=== PATIENT | female | born 1950 | race Hispanic/Latino ===

== ENCOUNTER 2017-01-29 05:57 | Inpatient (IN) | payer MEDICARE, BC ==
[2017-01-21 11:59] VITALS: BMI 36.6
[2017-01-29] MEDS ORDERED: Absorbable Gelatin Sponge Size 100 ONE (07:02)
[2017-01-29] MEDS ORDERED: Bupivacaine HCl 0.25% PF (30 ml) Inj ONE (07:02)
[2017-01-29] MEDS ORDERED: Thrombin Topical 5,000 IU Spray Kit ONE (07:03)
[2017-01-29] MEDS ORDERED: Midazolam 2 MG/2 ML VIAL ONE (07:09)
[2017-01-29] MEDS ORDERED: Propofol 10 mg/ml Inj (20 ML) ONE ×2 (07:09→10:18)
[2017-01-29] MEDS ORDERED: ePHEDrine 50 mg/ml Inj ONE ×2 (07:09→09:25)
[2017-01-29] MEDS ORDERED: Lactated Ringer's 1,000 ML IV ONE ×3 (07:09→10:00)
[2017-01-29] MEDS ORDERED: Rocuronium 10 mg/ml (5 ml) ONE (07:10)
[2017-01-29] MEDS ORDERED: Succinylcholine 200 mg/10 ml Inj IV ONE (07:10)
--- NOTE | 2017-01-29 07:44 | CP.PCM.CON ---
History of Present Illness - History of Present Illness History of Present Illness: 66 yo female with ongoing longstanding hx LBP radiating to bilateral posterior thighs, worsening paresthesias to bilateral feet,bilateral foot drops,ambulates with braces,multiple falls,dx with lumbar spinal stenosis and spondylolishthesis years ago,unable to have surgical intervention secondary to other medical problems,no relief with therapy and medication,increasing difficulty performing ADL's,here today for proposed Decompressive Lumbar Laminectomy and Fusion with Dr. Woodson,denies Bowel or bladder incontinance. Review of Systems - Review of Systems Systems not reviewed;Unavailable: Acuity of Condition - EENT Eyes: Requires Corrective Lenses - Cardiovascular Additional comments: Hx Htn,Hx pericardial effusion s/p pericardial window years agodenies CP,SOB, palpitations,arrthymia or AL - Musculoskeletal Musculoskeletal: Muscle Weakness, Radiating Pain into Limb, Tingling - Neurological Neurological: As Per HPI - Psychiatric Additional comments: Hx Depression ,denies suicidal/homicidal ideation - Endocrine Additional Comments: Hx Hypothyroidism - Hematologic/Lymphatic Additional comments: Hx Lymphoma with Adjuvant Rx 17 years ago and bone marrow transplant 4 years ago Past Patient History - Infectious Disease Hx of Infectious Diseases: None - Tetanus Immunizations Tetanus Immunization: Unknown - Past Medical History & Family History Past Medical History?: Yes - Past Social History Smoking Status: Never Smoked Chewing Tobacco Use: No Cigar Use: No Occupation: Retired Teacher Alcohol: None Drugs: Denies Home Situation {Lives}: With Family Domestic Violence: Negative - CARDIAC Hx Cardiac Disorders: Yes Hx Hypercholesterolemia: Yes Hx Hypertension: Yes - PULMONARY Hx Respiratory Disorders: No - NEUROLOGICAL Hx Neurological Disorder: No - HEENT Hx HEENT Problems: No - RENAL Hx Chronic Kidney Disease: No - ENDOCRINE/METABOLIC Hx Endocrine Disorders: No - HEMATOLOGICAL/ONCOLOGICAL Hx Blood Disorders: Yes Hx Anemia: Yes Hx Blood Transfusions: Yes (2002) Hx Blood Transfusion Reaction: No Hx Chemotherapy: Yes - INTEGUMENTARY Hx Dermatological Problems: No - MUSCULOSKELETAL/RHEUMATOLOGICAL Hx Musculoskeletal Disorders: Yes Hx Arthritis: Yes Hx Back Pain: Yes Hx Falls: Yes - GASTROINTESTINAL Hx Gastrointestinal Disorders: No - GENITOURINARY/GYNECOLOGICAL Hx Genitourinary Disorders: No - PSYCHIATRIC Hx Psychophysiologic Disorder: Yes Hx Depression: Yes - SURGICAL HISTORY Hx Surgeries: Yes Other/Comment: APPENDECTOMY-40 YEARS AGO;RIGHT TOTAL KNEE REPLACEMENT-1 YEAR AGO ;BONE MARROW TRANSPLANT 2012 - ANESTHESIA Hx Anesthesia: Yes Hx Anesthesia Reactions: No Hx Malignant Hyperthermia: No Has any member of the family had a problem w/ anesthesia?: No Meds Allergies/Adverse Reactions: Allergies Allergy/AdvReac Type Severity Reaction Status Date / Time No Known Allergies Allergy Verified 01/29/17 06:29 Physical Exam - Constitutional Appears: Well, Non-toxic, No Acute Distress - Head Exam Head Exam: ATRAUMATIC, NORMAL INSPECTION, NORMOCEPHALIC - Eye Exam Eye Exam: EOMI, Normal appearance, PERRL Pupil Exam: NORMAL ACCOMODATION - ENT Exam ENT Exam: Mucous Membranes Moist - Neck Exam Neck exam: Positive for: Normal Inspection - Respiratory Exam Respiratory Exam: Clear to Auscultation Bilateral - Cardiovascular Exam Cardiovascular Exam: REGULAR RHYTHM - GI/Abdominal Exam GI & Abdominal Exam: Normal Bowel Sounds, Soft - Rectal Exam Rectal Exam: Deferred - Extremities Exam Extremities exam: Positive for: pedal pulses present - Back Exam Back exam: paraspinal tenderness, vertebral tenderness - Neurological Exam Neurological exam: Alert, Oriented x3 Additional comments: DIAZ x 4 antigravity with BLE weakness 4/5,depressed DTR's ,bilateral SLR 30 degree's,+ bilateral foot drops,dorsiflexion 1/5,plantar flexion 3+ to 4/5, decreased sensation bilateral pedis and L4-5 dermatome - Psychiatric Exam Psychiatric exam: Normal Affect, Normal Mood - Skin Skin Exam: Dry, Intact Results - Vital Signs Recent Vital Signs: Last Vital Signs Temp 98.4 F 01/29/17 06:44 Pulse 72 01/29/17 06:44 Resp 20 01/29/17 06:44 BP 125/65 01/29/17 06:44 Pulse Ox 95 01/29/17 06:44 - Labs Result Diagrams: 01/31/17 06:00 01/30/17 04:50 Labs: Laboratory Results - last 24 hr 01/29/17 05:45 BBK History Checked No verified bt Assessment & Plan - Assessment and Plan (Free Text) Assessment: 66 yo female with Lumbar Spinal Stenosis, Spondylolishthesis with radiculapathy BLE and Foot Drops Plan: here for proposed Decompressive Lumbar laminectomy and Instrumented Fusion, risks and benefits of surgery d/w pt and informed that symptoms may or may not improve post surgery,,expressed understanding and wishes to proceed
[2017-01-29] MEDS ORDERED: HEMOSTATIC MATRIX 10 ML DIS.NEEDLE TOP ONE (08:15)
[2017-01-29] MEDS ORDERED: Neostigmine Methylsulfate 3mg/3ml Syringe IV ONE (09:15)
[2017-01-29] MEDS ORDERED: Neostigmine Methylsulfate 2 MG/2 ML ML IV ONE (09:15)
[2017-01-29] MEDS ORDERED: Thrombin Topical 5,000 IU Spray Kit TOP ONE (09:39)
[2017-01-29] MEDS ORDERED: Absorbable Gelatin Sponge Size 100 TP ONE (09:40)
[2017-01-29] MEDS ORDERED: Bupivacaine HCl 0.25% PF (30 ml) Inj IJ ONE (10:08)
[2017-01-29] MEDS ORDERED: Naloxone 0.4 mg/ml Inj (Adult) IVP PRN (10:34)
[2017-01-29] MEDS: HYDROmorphone 0.5 mg/0.5 ml ISec IVP PRN ×4 (11:10→12:05)
--- NOTE | 2017-01-29 11:43 | RAD ---
PROCEDURE: Intraoperative Fluoroscopy. HISTORY: PLIF FINDINGS: Fluoroscopic assistance was provided. 53.9 seconds fluoroscopy time utilized during this procedure. Radiation dose = 47.54 mGy.
[2017-01-29] MEDS ORDERED: HYDROmorphone 0.5 mg/0.5 ml ISec ONE (11:48)
[2017-01-29] MEDS ORDERED: HYDROmorphone 0.5 mg/0.5 ml ISec IVP ONE (12:22)
[2017-01-29 15:01] LABS: HEMATOCRIT 35.4 % (34.0-47.0); MEAN CELL VOLUME 96.5 fl (81.0-99.0); MEAN CORPUSCULAR HEMOGLOBIN 30.8 pg (27.0-31.0); MEAN CORPUSCULAR HGB CONC 31.9 g/dL (33.0-37.0); RED CELL DISTRIBUTION WIDTH 14.2 % (11.5-14.5); WHITE BLOOD COUNT 11.3 K/uL (4.8-10.8)
[2017-01-29 15:17] LABS: GFR AFRICAN-AMERICAN > 60
[2017-01-29] MEDS: ceFAZolin 1 GM in Sodium Chloride 0.9% 100 ML IVPB SCH (17:20)
[2017-01-29] MEDS ORDERED: Dextrose 5%/0.45% NS 1,000 ML IV SCH (23:45)
--- NOTE | 2017-01-30 01:43 | OP ---
PREOPERATIVE DIAGNOSES: Spondylolisthesis at L4-L5 with spinal instability and spinal stenosis. POSTOPERATIVE DIAGNOSES: Spondylolisthesis at L4-L5 with spinal instability and spinal stenosis. PROCEDURE: L4-L5 lumbar laminectomy, L4-L5 pedicle screw fixation using Amendia system and L4-L5 posterolateral fusion. SURGEON: Dr. Woodson. DIRECTOR FEDERAL: DESIRAE Sumner DESCRIPTION OF PROCEDURE: The patient was brought to the operating room, administered with general endotracheal anesthesia, placed in a prone position on a Rodney table. Care was taken to protect all the pressure points. Back of the lumbar area thoroughly prepped and draped in sterile manner after marking for a skin incision for a lumbar laminectomy and fusion. After prepping and draping the area, skin has been incised. Bleeding skins had been controlled with bipolar hanger off. After using a Bovie hanger off, paraspinal muscles had been detached, attachments of spinous process, lamina of L4-L5 bilaterally. The deep retractors have been applied. Fluoroscopy had been used in order to confirm this level. At this point, by using traditional landmarks, point of entry had been noted for L4-L5 pedicles. Initially, a K-wire, later a drill had been used in order to enter the pedicles. Bones were found to be soft. After that, polyaxial titanium screws of Amendia system had been placed in the pedicles of L4 and L5 under fluoroscopy-guided control. Titanium rods had been placed, cap nuts had been used in order to secure them. After that, under microscopic examination, by using a Leksell rongeur, the spinous process of L4 and L5 had been removed. By using a high speed drill the lamina had been drilled to actual thickness. By using a fine Kerrison punch, lamina, medial part of the facets and ligamentum flavum had been removed decompressing this area. After that, lateral aspect of facet joint had been decorticated, demineralized bone placed in the area achieving a posterolateral fusion. Hemostasis best achieved. Rodney drain placed on the wound and brought out through a separate stab neck skin incision. Muscles and fascia closed with 1 Vicryl, subcutaneous tissue with 3 Vicryl and skin had been closed with intradermal 3 Vicryl stitches. Leland Woodson MD
[2017-01-30] MEDS: ceFAZolin 1 GM in Sodium Chloride 0.9% 100 ML IVPB SCH ×3 (01:44→17:26)
[2017-01-30 06:01] LABS: HEMATOCRIT 33.8 % (34.0-47.0); MEAN CELL VOLUME 96.9 fl (81.0-99.0); MEAN CORPUSCULAR HEMOGLOBIN 31.5 pg (27.0-31.0); MEAN CORPUSCULAR HGB CONC 32.5 g/dL (33.0-37.0); RED CELL DISTRIBUTION WIDTH 14.5 % (11.5-14.5); WHITE BLOOD COUNT 11.5 K/uL (4.8-10.8)
[2017-01-30] MEDS: Levothyroxine 50 MCG TAB PO SCH (06:03)
[2017-01-30 06:34] LABS: BLOOD UREA NITROGEN 11 mg/dl (7-17); CALCIUM 8.6 mg/dL (8.4-10.2); CARBON DIOXIDE 29 mmol/L (22-30); CHLORIDE 97 mmol/L (98-107); GFR AFRICAN-AMERICAN > 60; GLUCOSE,RANDOM 147 mg/dL (65-105); POTASSIUM 4.3 MMOL/L (3.6-5.0); SODIUM 136 mmol/l (132-148)
[2017-01-30] MEDS: Venlafaxine 150 mg ER Cap PO SCH (08:56)
[2017-01-30] MEDS ORDERED: Oxycodone/Acetaminophen 5/325 mg Tab PO PRN (09:48)
[2017-01-30] MEDS ORDERED: HYDROmorphone 0.5 mg/0.5 ml ISec IVP PRN (09:49)
[2017-01-30] MEDS: oxyCODONE 5 mg Immediate Release Tab PO PRN (13:22)
--- NOTE | 2017-01-30 16:48 | CP.PCM.PN ---
Subjective - Date & Time of Evaluation Date of Evaluation: 01/30/17 Time of Evaluation: 09:00 - Subjective Subjective: pt c/o incisional pain alleviated with pain meds,to get OOB and eval by PT today ,shane PO,mild indigestion,voiding without c/o,+ flatus,no events last pm noted Objective - Vital Signs/Intake and Output Vital Signs (last 24 hours): Temp Pulse Resp BP Pulse Ox 99.7 F H 96 H 20 123/78 95 01/30/17 16:04 01/30/17 16:04 01/30/17 16:04 01/30/17 16:04 01/30/17 16:04 Intake and Output: 01/30/17 01/30/17 06:59 18:59 Intake Total 1050 Output Total 980 Balance 70 - Medications Medications: Current Medications Acetaminophen (Tylenol 325mg Tab) 650 mg PO Q6 PRN PRN Reason: temp . 100.4 Atorvastatin Calcium (Lipitor) 20 mg PO DAILY [facility] Last Admin: 01/30/17 08:57 Dose: 20 mg Carvedilol (Coreg) 3.125 mg PO BID [facility] Last Admin: 01/30/17 08:55 Dose: 3.125 mg Cholecalciferol (Vitamin D) 2,000 iu PO DAILY [facility] Last Admin: 01/30/17 08:58 Dose: 2,000 iu Cyclobenzaprine HCl (Flexeril) 10 mg PO TID PRN PRN Reason: Muscle spasm Enoxaparin Sodium (Lovenox) 40 mg SC DAILY [facility] PRN Reason: Protocol Fentanyl (Duragesic) 1 patch TD Q3D [facility] PRN Reason: Protocol Hydromorphone HCl (Dilaudid) 1 mg IVP Q4 PRN PRN Reason: Pain, severe (8-10) Cefazolin Sodium 1 gm/ Sodium (Chloride) 100 mls @ 100 mls/hr IVPB Q8 [facility] Last Admin: 01/30/17 09:11 Dose: 100 mls/hr Dextrose/Sodium Chloride (Dextrose 5%/0.45% Ns 1000 Ml) 1,000 mls @ 80 mls/hr IV .[id number] [facility] Stop: 01/30/17 23:37 Last Admin: 01/30/17 00:40 Dose: 80 mls/hr Levothyroxine Sodium (Synthroid) 50 mcg PO 0630 [facility] Last Admin: 01/30/17 06:03 Dose: 50 mcg Naloxone HCl (Narcan) 0.1 mg IVP Q2M PRN PRN Reason: Shortness of Breath Ondansetron HCl (Zofran Inj) 4 mg IVP Q8 PRN PRN Reason: Nausea/Vomiting Oxycodone HCl (Oxycodone Immediate Release Tab) 15 mg PO Q6 PRN PRN Reason: Pain, moderate (4-7) Last Admin: 01/30/17 13:22 Dose: 15 mg Pregabalin (Lyrica) 100 mg PO TID [facility] Last Admin: 01/30/17 13:23 Dose: 100 mg Venlafaxine HCl (Effexor Xr) 150 mg PO DAILY [facility] Last Admin: 01/30/17 08:56 Dose: 150 mg - Labs Labs: 01/30/17 04:50 01/30/17 04:50 - Constitutional Appears: Well, Non-toxic, No Acute Distress - Head Exam Head Exam: ATRAUMATIC, NORMAL INSPECTION, NORMOCEPHALIC - Eye Exam Eye Exam: EOMI, Normal appearance, PERRL - ENT Exam ENT Exam: Mucous Membranes Moist - Neck Exam Neck Exam: Normal Inspection - Respiratory Exam Respiratory Exam: Clear to Ausculation Bilateral - Cardiovascular Exam Cardiovascular Exam: REGULAR RHYTHM, +S1, +S2 - GI/Abdominal Exam GI & Abdominal Exam: Soft, Normal Bowel Sounds - Extremities Exam Extremities Exam: Normal Capillary Refill, Normal Inspection Additional comments: calves soft/NT - Back Exam Additional comments: incision C/D/I,ELE with serosanguinos drainage,+ incisional tenderness,no fluctuance - Neurological Exam Neurological Exam: Alert, Oriented x3 Additional comments: DIAZ x 4 antigravity with good strength,limited secondary to pain,decreased sensation BLE,+ bilateral unchanged foot drops,depressed DTR's - Psychiatric Exam Psychiatric exam: Normal Affect, Normal Mood - Skin Skin Exam: Dry, Intact Assessment and Plan - Assessment and Plan (Free Text) Assessment: 66 yo female POD#1 Decompressive Lumbar Laminectomy and Instrumented Fusion L4- 5 secondary to Spinal Stenosis and Spondylolishthesis ,Neurologically Stable Plan: [employer] d/c,home pain meds restarted and getting Dilaudid for breakthrough pain and muscle relaxer,cont OOB,f/u PT eval,possible rehab candidate,cont to monitor, keep drain in,all d/w Dr. Woodson
--- NOTE | 2017-01-30 16:56 | US ---
PROCEDURE: Bilateral lower extremity venous duplex Doppler. HISTORY: p/op [place] /fusion,hx CA,immobile,r/o DVT COMPARISON: Not available TECHNIQUE: Bilateral common femoral, superficial femoral, popliteal and posterior tibial veins were evaluated. Flow was assessed with color Doppler, compressibility, assessment of phasic flow and augmentation response. FINDINGS: COMMON FEMORAL VEIN: Right CFV: Unremarkable. Left CFV: Unremarkable. SUPERFICIAL FEMORAL VEIN: Right SFV: Unremarkable. Left SFV: Unremarkable. POPLITEAL VEIN: Right Popliteal: Unremarkable. Left Popliteal: Unremarkable. POSTERIOR TIBIAL VEIN: Right PTV: Unremarkable. Left PTV: Unremarkable. OTHER FINDINGS: None. IMPRESSION: No evidence of deep venous thrombosis in the right or left lower extremity. .
[2017-01-30] MEDS: Enoxaparin 40 mg Syringe SC SCH (17:29)
[2017-01-31] MEDS: ceFAZolin 1 GM in Sodium Chloride 0.9% 100 ML IVPB SCH ×3 (00:35→16:26)
[2017-01-31] MEDS: Levothyroxine 50 MCG TAB PO SCH (05:39)
[2017-01-31 07:28] LABS: HEMATOCRIT 31.8 % (34.0-47.0); MEAN CELL VOLUME 96.5 fl (81.0-99.0); MEAN CORPUSCULAR HEMOGLOBIN 31.1 pg (27.0-31.0); MEAN CORPUSCULAR HGB CONC 32.2 g/dL (33.0-37.0); RED CELL DISTRIBUTION WIDTH 14.5 % (11.5-14.5)
[2017-01-31] MEDS: Venlafaxine 150 mg ER Cap PO SCH (08:44)
[2017-01-31] MEDS: Enoxaparin 40 mg Syringe SC SCH (08:45)
--- NOTE | 2017-01-31 10:35 | CP.PCM.PN ---
Subjective - Date & Time of Evaluation Date of Evaluation: 01/31/17 Time of Evaluation: 10:30 - Subjective Subjective: Patient is doing well. She did well with her PT yesterday. US showed no DVT Objective - Vital Signs/Intake and Output Vital Signs (last 24 hours): Temp Pulse Resp BP Pulse Ox 98.7 F 80 18 94/55 L 96 01/31/17 07:56 01/31/17 09:00 01/31/17 07:56 01/31/17 08:44 01/31/17 07:56 - Medications Medications: Current Medications Acetaminophen (Tylenol 325mg Tab) 650 mg PO Q6 PRN PRN Reason: temp . 100.4 Atorvastatin Calcium (Lipitor) 20 mg PO DAILY [facility] Last Admin: 01/31/17 08:44 Dose: 20 mg Carvedilol (Coreg) 3.125 mg PO BID [facility] Last Admin: 01/31/17 08:44 Dose: Not Given Cholecalciferol (Vitamin D) 2,000 iu PO DAILY [facility] Last Admin: 01/31/17 08:45 Dose: 2,000 iu Cyclobenzaprine HCl (Flexeril) 10 mg PO TID PRN PRN Reason: Muscle spasm Enoxaparin Sodium (Lovenox) 40 mg SC DAILY [facility] PRN Reason: Protocol Last Admin: 01/31/17 08:45 Dose: 40 mg Fentanyl (Duragesic) 1 patch TD Q3D [facility] PRN Reason: Protocol Hydromorphone HCl (Dilaudid) 1 mg IVP Q4 PRN PRN Reason: Pain, severe (8-10) Last Admin: 01/31/17 08:51 Dose: 1 mg Cefazolin Sodium 1 gm/ Sodium (Chloride) 100 mls @ 100 mls/hr IVPB Q8 [facility] Last Admin: 01/31/17 08:43 Dose: 100 mls/hr Levothyroxine Sodium (Synthroid) 50 mcg PO 0630 [facility] Last Admin: 01/31/17 05:39 Dose: 50 mcg Naloxone HCl (Narcan) 0.1 mg IVP Q2M PRN PRN Reason: Shortness of Breath Ondansetron HCl (Zofran Inj) 4 mg IVP Q8 PRN PRN Reason: Nausea/Vomiting Oxycodone HCl (Oxycodone Immediate Release Tab) 15 mg PO Q6 PRN PRN Reason: Pain, moderate (4-7) Last Admin: 01/30/17 13:22 Dose: 15 mg Pregabalin (Lyrica) 100 mg PO TID [facility] Last Admin: 01/31/17 08:47 Dose: 100 mg Venlafaxine HCl (Effexor Xr) 150 mg PO DAILY [facility] Last Admin: 01/31/17 08:44 Dose: 150 mg - Labs Labs: 01/31/17 06:00 01/30/17 04:50 - Head Exam Head Exam: NORMAL INSPECTION - Eye Exam Eye Exam: Normal appearance - ENT Exam ENT Exam: Mucous Membranes Moist - Respiratory Exam Respiratory Exam: Clear to Ausculation Bilateral - Cardiovascular Exam Cardiovascular Exam: REGULAR RHYTHM - GI/Abdominal Exam GI & Abdominal Exam: Normal Bowel Sounds Assessment and Plan (1) Hypertension Status: Acute (2) Hypothyroidism Status: Acute (3) Lumbar radiculopathy, chronic Status: Acute (4) Lumbar spondylosis Status: Acute (5) Neurologic gait dysfunction Status: Acute (6) Obesity (BMI 35.0-39.9 without comorbidity) Status: Acute - Assessment and Plan (Free Text) Plan: cont meds cont PT for subacute rehab
[2017-01-31] MEDS: oxyCODONE 5 mg Immediate Release Tab PO PRN ×2 (10:36→18:08)
--- NOTE | 2017-01-31 10:36 | CP.PCM.PN ---
Subjective - Date & Time of Evaluation Date of Evaluation: 01/30/17 Time of Evaluation: 10:00 - Subjective Subjective: patient remains well has minimal back pain. comp[lains of some discomfort in the upper thigh areas. Objective - Vital Signs/Intake and Output Vital Signs (last 24 hours): Temp Pulse Resp BP Pulse Ox 98.7 F 80 18 94/55 L 96 01/31/17 07:56 01/31/17 09:00 01/31/17 07:56 01/31/17 08:44 01/31/17 07:56 - Medications Medications: Current Medications Acetaminophen (Tylenol 325mg Tab) 650 mg PO Q6 PRN PRN Reason: temp . 100.4 Atorvastatin Calcium (Lipitor) 20 mg PO DAILY [facility] Last Admin: 01/31/17 08:44 Dose: 20 mg Carvedilol (Coreg) 3.125 mg PO BID [facility] Last Admin: 01/31/17 08:44 Dose: Not Given Cholecalciferol (Vitamin D) 2,000 iu PO DAILY [facility] Last Admin: 01/31/17 08:45 Dose: 2,000 iu Cyclobenzaprine HCl (Flexeril) 10 mg PO TID PRN PRN Reason: Muscle spasm Enoxaparin Sodium (Lovenox) 40 mg SC DAILY [facility] PRN Reason: Protocol Last Admin: 01/31/17 08:45 Dose: 40 mg Fentanyl (Duragesic) 1 patch TD Q3D [facility] PRN Reason: Protocol Hydromorphone HCl (Dilaudid) 1 mg IVP Q4 PRN PRN Reason: Pain, severe (8-10) Last Admin: 01/31/17 08:51 Dose: 1 mg Cefazolin Sodium 1 gm/ Sodium (Chloride) 100 mls @ 100 mls/hr IVPB Q8 [facility] Last Admin: 01/31/17 08:43 Dose: 100 mls/hr Levothyroxine Sodium (Synthroid) 50 mcg PO 0630 [facility] Last Admin: 01/31/17 05:39 Dose: 50 mcg Naloxone HCl (Narcan) 0.1 mg IVP Q2M PRN PRN Reason: Shortness of Breath Ondansetron HCl (Zofran Inj) 4 mg IVP Q8 PRN PRN Reason: Nausea/Vomiting Oxycodone HCl (Oxycodone Immediate Release Tab) 15 mg PO Q6 PRN PRN Reason: Pain, moderate (4-7) Last Admin: 01/30/17 13:22 Dose: 15 mg Pregabalin (Lyrica) 100 mg PO TID [facility] Last Admin: 01/31/17 08:47 Dose: 100 mg Venlafaxine HCl (Effexor Xr) 150 mg PO DAILY [facility] Last Admin: 01/31/17 08:44 Dose: 150 mg - Labs Labs: 01/31/17 06:00 01/30/17 04:50 - Head Exam Head Exam: NORMAL INSPECTION - Eye Exam Eye Exam: Normal appearance - ENT Exam ENT Exam: Mucous Membranes Moist - Cardiovascular Exam Cardiovascular Exam: REGULAR RHYTHM - GI/Abdominal Exam GI & Abdominal Exam: Normal Bowel Sounds - Neurological Exam Neurological Exam: Awake, Oriented x3 - Psychiatric Exam Psychiatric exam: Normal Mood Assessment and Plan (1) Lumbar spondylosis Status: Acute (2) Hypertension Status: Acute (3) Lumbar radiculopathy, chronic Status: Acute (4) Neurologic gait dysfunction Status: Acute (5) Obesity (BMI 35.0-39.9 without comorbidity) Status: Acute - Assessment and Plan (Free Text) Plan: cont meds cont tx Cont PT cont pain meds.
--- NOTE | 2017-01-31 10:37 | CP.PCM.HP ---
History of Present Illness - History of Present Illness History of Present Illness: This is a 66 y/o female admitted for intractable back pain. She has problems with gait and ambulation and was diagnosed to have lumbar spondylosis. She developed bilateral foot drop about 5 years ago, Has a lot of lumbar radiculopathy Had done a lot of conservative measures but to no avail. Hence, she had lumbar laminectomy and decompression. Present on Admission - Present on Admission Any Indicators Present on Admission: No History of DVT/PE: No History of Uncontrolled Diabetes: No Urinary Catheter: No Decubitus Ulcer Present: No Past Patient History - Past Medical History & Family History Past Medical History?: Yes - Past Social History Smoking Status: Never Smoked - CARDIAC Hx Cardiac Disorders: Yes Hx Hypercholesterolemia: Yes Hx Hypertension: Yes - PULMONARY Hx Respiratory Disorders: No - NEUROLOGICAL Hx Neurological Disorder: No - HEENT Hx HEENT Problems: No - RENAL Hx Chronic Kidney Disease: No - ENDOCRINE/METABOLIC Hx Endocrine Disorders: No - HEMATOLOGICAL/ONCOLOGICAL Hx Blood Disorders: Yes Hx Anemia: Yes Hx Blood Transfusions: Yes (2002) Hx Blood Transfusion Reaction: No Hx Chemotherapy: Yes - INTEGUMENTARY Hx Dermatological Problems: No - MUSCULOSKELETAL/RHEUMATOLOGICAL Hx Arthritis: Yes - GASTROINTESTINAL Hx Gastrointestinal Disorders: No - GENITOURINARY/GYNECOLOGICAL Hx Genitourinary Disorders: No - PSYCHIATRIC Hx Psychophysiologic Disorder: Yes Hx Depression: Yes - SURGICAL HISTORY Hx Surgeries: Yes Other/Comment: APPENDECTOMY-40 YEARS AGO;RIGHT TOTAL KNEE REPLACEMENT-1 YEAR AGO ;BONE MARROW TRANSPLANT 2013 - ANESTHESIA Hx Anesthesia: Yes Hx Anesthesia Reactions: No Hx Malignant Hyperthermia: No Has any member of the family had a problem w/ anesthesia?: No Meds Allergies/Adverse Reactions: Allergies Allergy/AdvReac Type Severity Reaction Status Date / Time No Known Allergies Allergy Verified 01/29/17 06:29 Physical Exam - Head Exam Head Exam: NORMAL INSPECTION - Eye Exam Eye Exam: Normal appearance - ENT Exam ENT Exam: Mucous Membranes Moist - Respiratory Exam Respiratory Exam: Clear to Auscultation Bilateral - Cardiovascular Exam Cardiovascular Exam: REGULAR RHYTHM - GI/Abdominal Exam GI & Abdominal Exam: Normal Bowel Sounds - Neurological Exam Neurological exam: CN II-XII Intact, Oriented x3 - Psychiatric Exam Psychiatric exam: Normal Mood Results - Vital Signs Recent Vital Signs: Last Vital Signs Temp 98.7 F 01/31/17 07:56 Pulse 80 01/31/17 09:00 Resp 18 01/31/17 07:56 BP 94/55 L 01/31/17 08:44 Pulse Ox 96 01/31/17 07:56 - Labs Result Diagrams: 01/31/17 06:00 01/30/17 04:50 Labs: Laboratory Results - last 24 hr 01/31/17 06:00 WBC 11.0 H RBC 3.29 L Hgb 10.2 L Hct 31.8 L MCV 96.5 MCH 31.1 H MCHC 32.2 L RDW 14.5 Plt Count 140 Assessment & Plan (1) Lumbar spondylosis Status: Acute (2) Neurologic gait dysfunction Status: Acute (3) Hyperlipidemia Status: Acute (4) Hypertension Status: Acute (5) Hypothyroidism Status: Acute (6) Obesity (BMI 35.0-39.9 without comorbidity) Status: Acute - Assessment and Plan (Free Text) Plan: start posp care start Phys therapy pain meds rsume all meds. check doppler US venous lower ext.
[2017-02-01] MEDS: ceFAZolin 1 GM in Sodium Chloride 0.9% 100 ML IVPB SCH ×3 (01:28→16:22)
[2017-02-01] MEDS: Levothyroxine 50 MCG TAB PO SCH (06:29)
[2017-02-01] MEDS: oxyCODONE 5 mg Immediate Release Tab PO PRN ×3 (06:32→20:41)
[2017-02-01] MEDS: Venlafaxine 150 mg ER Cap PO SCH (09:30)
[2017-02-01] MEDS: Enoxaparin 40 mg Syringe SC SCH (09:31)
--- NOTE | 2017-02-01 13:33 | CP.PCM.PN ---
Subjective - Date & Time of Evaluation Date of Evaluation: 02/01/17 Time of Evaluation: 13:31 - Subjective Subjective: Patient continues to do well. Has no chest pain or SOB Afebrile Was seated most of the time yesterday. Objective - Vital Signs/Intake and Output Vital Signs (last 24 hours): Temp Pulse Resp BP Pulse Ox 98.4 F 89 20 116/77 96 02/01/17 12:27 02/01/17 12:27 02/01/17 12:27 02/01/17 12:27 02/01/17 12:27 Intake and Output: 02/01/17 02/01/17 06:59 18:59 Intake Total 950 Output Total 45 Balance 905 - Medications Medications: Current Medications Acetaminophen (Tylenol 325mg Tab) 650 mg PO Q6 PRN PRN Reason: temp . 100.4 Atorvastatin Calcium (Lipitor) 20 mg PO DAILY [facility] Last Admin: 02/01/17 09:31 Dose: 20 mg Carvedilol (Coreg) 3.125 mg PO BID [facility] Last Admin: 02/01/17 09:30 Dose: 3.125 mg Cholecalciferol (Vitamin D) 2,000 iu PO DAILY [facility] Last Admin: 02/01/17 09:31 Dose: 2,000 iu Cyclobenzaprine HCl (Flexeril) 10 mg PO TID PRN PRN Reason: Muscle spasm Enoxaparin Sodium (Lovenox) 40 mg SC DAILY [facility] PRN Reason: Protocol Last Admin: 02/01/17 09:31 Dose: 40 mg Fentanyl (Duragesic) 1 patch TD Q3D [facility] PRN Reason: Protocol Last Admin: 01/31/17 16:27 Dose: 1 patch Hydromorphone HCl (Dilaudid) 1 mg IVP Q4 PRN PRN Reason: Pain, severe (8-10) Last Admin: 01/31/17 21:50 Dose: 1 mg Cefazolin Sodium 1 gm/ Sodium (Chloride) 100 mls @ 100 mls/hr IVPB Q8 [facility] Last Admin: 02/01/17 09:29 Dose: 100 mls/hr Levothyroxine Sodium (Synthroid) 50 mcg PO 0630 [facility] Last Admin: 02/01/17 06:29 Dose: 50 mcg Naloxone HCl (Narcan) 0.1 mg IVP Q2M PRN PRN Reason: Shortness of Breath Ondansetron HCl (Zofran Inj) 4 mg IVP Q8 PRN PRN Reason: Nausea/Vomiting Oxycodone HCl (Oxycodone Immediate Release Tab) 15 mg PO Q6 PRN PRN Reason: Pain, moderate (4-7) Last Admin: 02/01/17 06:32 Dose: 15 mg Pregabalin (Lyrica) 100 mg PO TID [facility] Last Admin: 02/01/17 12:42 Dose: 100 mg Venlafaxine HCl (Effexor Xr) 150 mg PO DAILY [facility] Last Admin: 02/01/17 09:30 Dose: 150 mg - Labs Labs: 01/31/17 06:00 01/30/17 04:50 - Head Exam Head Exam: NORMAL INSPECTION - Eye Exam Eye Exam: Normal appearance - ENT Exam ENT Exam: Mucous Membranes Moist - Respiratory Exam Respiratory Exam: Clear to Ausculation Bilateral - Cardiovascular Exam Cardiovascular Exam: REGULAR RHYTHM - GI/Abdominal Exam GI & Abdominal Exam: Normal Bowel Sounds - Neurological Exam Neurological Exam: Awake, Oriented x3 - Psychiatric Exam Psychiatric exam: Normal Mood Assessment and Plan (1) Lumbar radiculopathy, chronic Status: Acute (2) Lumbar spondylosis Status: Acute (3) Neurologic gait dysfunction Status: Acute (4) Hypertension Status: Acute (5) Hyperlipidemia Status: Acute (6) Hypothyroidism Status: Acute (7) Obesity (BMI 35.0-39.9 without comorbidity) Status: Acute - Assessment and Plan (Free Text) Plan: cont meds cont PT Cont tx
[2017-02-02] MEDS: ceFAZolin 1 GM in Sodium Chloride 0.9% 100 ML IVPB SCH ×3 (00:14→16:00)
[2017-02-02] MEDS: Levothyroxine 50 MCG TAB PO SCH (05:51)
[2017-02-02] MEDS: Enoxaparin 40 mg Syringe SC SCH (08:43)
[2017-02-02] MEDS: Venlafaxine 150 mg ER Cap PO SCH (08:48)
--- NOTE | 2017-02-02 11:05 | CP.PCM.PN ---
Subjective - Date & Time of Evaluation Date of Evaluation: 02/02/17 Time of Evaluation: 11:03 - Subjective Subjective: Patient remains stable Has no chest pain or SOB afebrile. Objective - Vital Signs/Intake and Output Vital Signs (last 24 hours): Temp Pulse Resp BP Pulse Ox 98.0 F 88 20 107/70 94 L 02/02/17 08:55 02/02/17 08:55 02/02/17 08:55 02/02/17 08:55 02/02/17 08:55 Intake and Output: 02/02/17 02/02/17 06:59 18:59 Output Total 50 Balance -50 - Medications Medications: Current Medications Acetaminophen (Tylenol 325mg Tab) 650 mg PO Q6 PRN PRN Reason: temp . 100.4 Atorvastatin Calcium (Lipitor) 20 mg PO DAILY [facility] Last Admin: 02/02/17 08:44 Dose: 20 mg Carvedilol (Coreg) 3.125 mg PO BID [facility] Last Admin: 02/02/17 08:44 Dose: 3.125 mg Cholecalciferol (Vitamin D) 2,000 iu PO DAILY [facility] Last Admin: 02/02/17 08:43 Dose: 2,000 iu Cyclobenzaprine HCl (Flexeril) 10 mg PO TID PRN PRN Reason: Muscle spasm Last Admin: 02/02/17 08:44 Dose: 10 mg Fentanyl (Duragesic) 1 patch TD Q3D [facility] PRN Reason: Protocol Last Admin: 01/31/17 16:27 Dose: 1 patch Cefazolin Sodium 1 gm/ Sodium (Chloride) 100 mls @ 100 mls/hr IVPB Q8 [facility] Last Admin: 02/02/17 08:48 Dose: 100 mls/hr Levothyroxine Sodium (Synthroid) 50 mcg PO 0630 [facility] Last Admin: 02/02/17 05:51 Dose: 50 mcg Naloxone HCl (Narcan) 0.1 mg IVP Q2M PRN PRN Reason: Shortness of Breath Ondansetron HCl (Zofran Inj) 4 mg IVP Q8 PRN PRN Reason: Nausea/Vomiting Oxycodone HCl (Oxycodone Immediate Release Tab) 15 mg PO Q6 PRN PRN Reason: Pain, moderate (4-7) Last Admin: 02/01/17 20:41 Dose: 15 mg Pregabalin (Lyrica) 100 mg PO TID [facility] Last Admin: 02/02/17 08:52 Dose: 100 mg Venlafaxine HCl (Effexor Xr) 150 mg PO DAILY [facility] Last Admin: 02/02/17 08:48 Dose: 150 mg - Labs Labs: 01/31/17 06:00 01/30/17 04:50 - Head Exam Head Exam: NORMAL INSPECTION - Eye Exam Eye Exam: Normal appearance - ENT Exam ENT Exam: Mucous Membranes Moist - Respiratory Exam Respiratory Exam: Clear to Ausculation Bilateral - Cardiovascular Exam Cardiovascular Exam: REGULAR RHYTHM - GI/Abdominal Exam GI & Abdominal Exam: Normal Bowel Sounds - Neurological Exam Neurological Exam: Awake, Oriented x3 - Psychiatric Exam Psychiatric exam: Normal Mood Assessment and Plan (1) Hypertension Status: Acute (2) Hypothyroidism Status: Acute (3) Lumbar radiculopathy, chronic Status: Acute (4) Lumbar spondylosis Status: Acute (5) Neurologic gait dysfunction Status: Acute (6) Obesity (BMI 35.0-39.9 without comorbidity) Status: Acute - Assessment and Plan (Free Text) Plan: cont meds Cont tx Cont PT For subacute rehab in am.
[2017-02-02] MEDS: oxyCODONE 5 mg Immediate Release Tab PO PRN (15:54)
[2017-02-03] MEDS: ceFAZolin 1 GM in Sodium Chloride 0.9% 100 ML IVPB SCH ×2 (00:02→08:34)
[2017-02-03] MEDS: oxyCODONE 5 mg Immediate Release Tab PO PRN ×2 (06:02→14:02)
[2017-02-03] MEDS: Levothyroxine 50 MCG TAB PO SCH (06:04)
[2017-02-03 08:05] VITALS: RESP 18; O2SAT 96
[2017-02-03] MEDS: Venlafaxine 150 mg ER Cap PO SCH (08:37)
--- NOTE | 2017-02-03 10:29 | CP.PCM.PN ---
Subjective - Date & Time of Evaluation Date of Evaluation: 02/03/17 Time of Evaluation: 09:00 - Subjective Subjective: Patient is seen resting comfortably in bed. She states the chronic radicular pain has improved after the surgery. Despite pain at surgical site, she's been able to ambulate within her room with minimal assistance. Her pain is relatively controlled with Fentanyl patch, Oxycodone, and Dilaudid IV over the weekend, but she's been able to come off the Dilaudid IV. She's awaiting PT evaluation. Objective - Vital Signs/Intake and Output Vital Signs (last 24 hours): Temp Pulse Resp BP Pulse Ox 98.3 F 83 18 118/79 96 02/03/17 08:00 02/03/17 08:34 02/03/17 08:00 02/03/17 08:34 02/03/17 08:00 - Medications Medications: Current Medications Acetaminophen (Tylenol 325mg Tab) 650 mg PO Q6 PRN PRN Reason: temp . 100.4 Atorvastatin Calcium (Lipitor) 20 mg PO DAILY [facility] Last Admin: 02/03/17 08:38 Dose: 20 mg Carvedilol (Coreg) 3.125 mg PO BID [facility] Last Admin: 02/03/17 08:34 Dose: 3.125 mg Cholecalciferol (Vitamin D) 2,000 iu PO DAILY [facility] Last Admin: 02/03/17 08:38 Dose: 2,000 iu Cyclobenzaprine HCl (Flexeril) 10 mg PO TID PRN PRN Reason: Muscle spasm Last Admin: 02/02/17 08:44 Dose: 10 mg Fentanyl (Duragesic) 1 patch TD Q3D [facility] PRN Reason: Protocol Last Admin: 01/31/17 16:27 Dose: 1 patch Hydromorphone HCl (Dilaudid) 1 mg IVP Q4 PRN PRN Reason: Pain, severe (8-10) Cefazolin Sodium 1 gm/ Sodium (Chloride) 100 mls @ 100 mls/hr IVPB Q8 [facility] Last Admin: 02/03/17 08:34 Dose: 100 mls/hr Levothyroxine Sodium (Synthroid) 50 mcg PO 0630 [facility] Last Admin: 02/03/17 06:04 Dose: 50 mcg Naloxone HCl (Narcan) 0.1 mg IVP Q2M PRN PRN Reason: Shortness of Breath Ondansetron HCl (Zofran Inj) 4 mg IVP Q8 PRN PRN Reason: Nausea/Vomiting Oxycodone HCl (Oxycodone Immediate Release Tab) 15 mg PO Q6 PRN PRN Reason: Pain, moderate (4-7) Last Admin: 02/03/17 06:02 Dose: 15 mg Pregabalin (Lyrica) 100 mg PO TID [facility] Venlafaxine HCl (Effexor Xr) 150 mg PO DAILY [facility] Last Admin: 02/03/17 08:37 Dose: 150 mg - Labs Labs: 01/31/17 06:00 01/30/17 04:50 - Respiratory Exam Respiratory Exam: NORMAL BREATHING PATTERN - Cardiovascular Exam Cardiovascular Exam: REGULAR RHYTHM Assessment and Plan (1) Lumbar radiculopathy, chronic Assessment & Plan: 67 yo woman w/ chronic pain is s/p lumbar laminectomy. - continue Fentanyl patch 50mcg, q48h - continue Oyxcodone 15mg PRN - continue Lyrica - will titrate home regimen depending on how patient tolerates PT Status: Acute
--- NOTE | 2017-02-03 11:48 | CP.PCM.DIS ---
<Maykel Romero - Last Filed: 02/03/17 11:45> Provider - Provider Date of Admission: 01/29/17 11:42 Attending physician: Chan Casey MD Primary care physician: Leland Woodson MD Consults: Pain management: Dr. Rosen Time Spent in preparation of Discharge (in minutes): 35 Diagnosis - Discharge Diagnosis (1) Lumbar radiculopathy, chronic Status: Acute Comment: s/p laminectomy. to be d/c to rehab facility for rehabilitation. (2) Hyperlipidemia Status: Chronic Comment: on lipitor 20mg (3) Hypertension Status: Chronic Comment: controlled with coreg 3.125mg bid (4) Hypothyroidism Status: Chronic Comment: synthroid 50mcg (5) Obesity (BMI 35.0-39.9 without comorbidity) Status: Chronic Hospital Course - Lab Results Lab Results: Most Recent Lab Values WBC 11.0 K/uL (4.8-10.8) H 01/31/17 06:00 RBC 3.29 Mil/uL (3.80-5.20) L 01/31/17 06:00 Hgb 10.2 g/dL (12.0-16.0) L 01/31/17 06:00 Hct 31.8 % (34.0-47.0) L 01/31/17 06:00 MCV 96.5 fl (81.0-99.0) 01/31/17 06:00 MCH 31.1 pg (27.0-31.0) H 01/31/17 06:00 MCHC 32.2 g/dL (33.0-37.0) L 01/31/17 06:00 RDW 14.5 % (11.5-14.5) 01/31/17 06:00 Plt Count 140 K/uL (130-400) 01/31/17 06:00 Sodium 136 mmol/l (132-148) 01/30/17 04:50 Potassium 4.3 MMOL/L (3.6-5.0) 01/30/17 04:50 Chloride 97 mmol/L (98-107) L 01/30/17 04:50 Carbon Dioxide 29 mmol/L (22-30) 01/30/17 04:50 Anion Gap 14 (10-20) 01/30/17 04:50 BUN 11 mg/dl (7-17) 01/30/17 04:50 Creatinine 0.9 mg/dL (0.7-1.2) 01/30/17 04:50 Est GFR ( Amer) > 60 01/30/17 04:50 Est GFR (Non-Af Amer) > 60 01/30/17 04:50 Random Glucose 147 mg/dL (65-105) H 01/30/17 04:50 Calcium 8.6 mg/dL (8.4-10.2) 01/30/17 04:50 Blood Type B POSITIVE 01/29/17 05:45 Blood Type Confirm B POSITIVE 01/29/17 07:15 Antibody Screen Negative 01/29/17 05:45 BBK History Checked No verified bt 01/29/17 05:45 - Hospital Course Hospital Course: 67 year morbidly obese female admitted for chronic lumbar pain with radiculopathy s/p laminectomy with Dr. Woodson. She is doing well postoperatively. Pain has been controlled. Drain was removed today. She will be discharged to rehabilitation facility for optimization upon discharge home. Discharge Exam - Head Exam Head Exam: ATRAUMATIC, NORMAL INSPECTION, NORMOCEPHALIC - Eye Exam Eye Exam: EOMI, Normal appearance, PERRL - ENT Exam ENT Exam: Mucous Membranes Moist - Respiratory Exam Respiratory Exam: Clear to PA & Lateral, NORMAL BREATHING PATTERN, UNREMARKABLE - Cardiovascular Exam Cardiovascular Exam: REGULAR RHYTHM, +S1, +S2 - Neurological Exam Neurological exam: Alert, CN II-XII Intact, Oriented x3 - Psychiatric Exam Psychiatric exam: Normal Affect, Normal Mood - Skin Skin Exam: Dry, Intact, Normal Color Discharge Plan - Follow Up Plan Condition: GOOD Disposition: REHAB FACILITY/REHAB UNIT Instructions: Laminectomy (DC) Additional Instructions: Transfer to rehab in [place] for contijuation of PT. Rx given I was present during discharge evaluation and discussed with CRIMINOLOGY TEACHER Jeane and Dr Romero re discharge plans. Chan Casey M.D. Referrals: Leland Woodson MD [Primary Care Provider] - <Chan Casey - Last Filed: 02/04/17 07:10> Provider - Provider Date of Admission: 01/29/17 11:42 Attending physician: Chan Casey MD Primary care physician: Leland Woodson MD Diagnosis - Discharge Diagnosis (1) Hypertension Status: Chronic (2) Hypothyroidism Status: Chronic (3) Lumbar radiculopathy, chronic Status: Acute (4) Lumbar spondylosis Status: Acute (5) Neurologic gait dysfunction Status: Acute (6) Obesity (BMI 35.0-39.9 without comorbidity) Status: Chronic Hospital Course - Lab Results Lab Results: Most Recent Lab Values WBC 11.0 K/uL (4.8-10.8) H 01/31/17 06:00 RBC 3.29 Mil/uL (3.80-5.20) L 01/31/17 06:00 Hgb 10.2 g/dL (12.0-16.0) L 01/31/17 06:00 Hct 31.8 % (34.0-47.0) L 01/31/17 06:00 MCV 96.5 fl (81.0-99.0) 01/31/17 06:00 MCH 31.1 pg (27.0-31.0) H 01/31/17 06:00 MCHC 32.2 g/dL (33.0-37.0) L 01/31/17 06:00 RDW 14.5 % (11.5-14.5) 01/31/17 06:00 Plt Count 140 K/uL (130-400) 01/31/17 06:00 Sodium 136 mmol/l (132-148) 01/30/17 04:50 Potassium 4.3 MMOL/L (3.6-5.0) 01/30/17 04:50 Chloride 97 mmol/L (98-107) L 01/30/17 04:50 Carbon Dioxide 29 mmol/L (22-30) 01/30/17 04:50 Anion Gap 14 (10-20) 01/30/17 04:50 BUN 11 mg/dl (7-17) 01/30/17 04:50 Creatinine 0.9 mg/dL (0.7-1.2) 01/30/17 04:50 Est GFR ( Amer) > 60 01/30/17 04:50 Est GFR (Non-Af Amer) > 60 01/30/17 04:50 Random Glucose 147 mg/dL (65-105) H 01/30/17 04:50 Calcium 8.6 mg/dL (8.4-10.2) 01/30/17 04:50 Blood Type B POSITIVE 01/29/17 05:45 Blood Type Confirm B POSITIVE 01/29/17 07:15 Antibody Screen Negative 01/29/17 05:45 BBK History Checked No verified bt 01/29/17 05:45
[2017-02-03 12:01] VITALS: BP 107/71; PULSE 84; TEMP 98.4
--- NOTE | 2017-02-10 15:11 | H.ACR ---
ADMINISTRATIVE CLOSURE OF RECORDS Date of Note: 02/10/17 Physician's Name: Pedro Suggs This record is being administratively closed for the following reason: [ ] The physician on . [ ] The physician is no longer available to complete medical records physician resigned on . [ X] The person responsible is no longer [employer] [facility] employee as of 02/29/2016_. [ ] The person responsible cannot be identified. [ ] The records has missing and/or incomplete forms. The following documents were not electronically signed: [ ] History & Physical [ ] Discharge Summary [ ] Operative Report(s) [ ] Progress Notes(s) [ X] Orders(s) [ ] Other Missing/Incomplete forms: [ ] History & Physical [ ] Discharge Summary [ ] Operative Report(s) [ ] Progress Notes(s) [ X] Orders(s) x3 [ ] Other Approved for filing by Medical Executive Committee/Medical Records Committee on __02/10/17____. Thank you, [facility] [employer] Ashley Kirby MD, MS [employer]aturator [employer] [facility]
== END 2017-02-03 15:30 | DRG 460 ==
LOC: H.OPSURG 05:57 → H.TEL 11:42
PROVIDERS: ADMIT Family Medicine; ATTEND Family Medicine
PROC: 0SG10A1 (ICD-10-PCS; 2017-01-29)
PROC: 0QB00ZZ Excision of Lumbar Vertebra, Open Approach (ICD-10-PCS; principal; 2017-01-29 07:45)
DX: M43.16 Spondylolisthesis, lumbar region (principal); Z94.81 Bone marrow transplant status; I10 Essential (primary) hypertension; E66.01 Morbid (severe) obesity due to excess calories; E03.9 Hypothyroidism, unspecified; E78.00 Pure hypercholesterolemia, unspecified; E78.5 Hyperlipidemia, unspecified; M47.26 Other spondylosis with radiculopathy, lumbar region; M48.06 Spinal stenosis, lumbar region; M53.2X9 Spinal instabilities, site unspecified; Z96.651 Presence of right artificial knee joint; D64.9 Anemia, unspecified; F32.9 Major depressive disorder, single episode, unspecified; M19.90 Unspecified osteoarthritis, unspecified site; M21.371 Foot drop, right foot; M21.372 Foot drop, left foot; R29.6 Repeated falls; R26.9 Unspecified abnormalities of gait and mobility; Z68.36 Body mass index [BMI] 36.0-36.9, adult